=== PATIENT | female | born 1985 | race American Indian/Alaskan Native ===

== ENCOUNTER 2017-03-14 09:48 | Emergency (ER) | payer OTHER ==
[2017-03-14 10:19] VITALS: BP 103/71
[2017-03-14 10:36] LABS: Basophils % (Auto) 0.9 % (0.0-1.8); Eosinophils % (Auto) 2.5 % (0.0-4.3); Hematocrit 38.6 % (30.3-42.9); Hemoglobin 12.6 gm/dl (10.1-14.3); Mean Corpuscular HGB Conc 33 % (30-34); Mean Corpuscular Hemoglobin 28 pg (28-32); Mean Corpuscular Volume 85 fl (79-97); Platelet Count 205 K/mm3 (140-440); Red Blood Count 4.56 M/mm3 (3.65-5.03); Red Cell Distribution Width 15.5 % (13.2-15.2); White Blood Count 6.7 K/mm3 (4.5-11.0)
[2017-03-14 10:54] LABS: Anion Gap 16 mmol/L; Blood Urea Nitrogen 14 mg/dL (7-17); Calcium 8.5 mg/dL (8.4-10.2); Carbon Dioxide 25 mmol/L (22-30); Chloride 100.8 mmol/L (98-107); Glucose 94 mg/dL (65-100); Potassium 4.7 mmol/L (3.6-5.0); Sodium 137 mmol/L (137-145)
[2017-03-14 11:48] LABS: Bilirubin,Urine NEG (Negative); Blood,Urine NEG (Negative); Ketones,Urine NEG (Negative); Leukocyte Esterase,Urine TR (Negative); Nitrite,Urine NEG (Negative); Protein,Urine <15 mg/dL mg/dL (Negative); Urobilinogen,Urine < 2.0 mg/dL (<2.0)
--- NOTE | 2017-03-14 12:32 | XRay Report ---
CHEST 2 VIEWS INDICATION: Chest pain. COMPARISON: None similar. FINDINGS: PA and lateral chest radiographs demonstrate normal cardiomediastinal silhouette. Clear lungs. Intact bones. CONCLUSION: No acute disease in the chest. Thank you for the opportunity to participate in this patient's care.
[2017-03-14] MEDS ORDERED: TORADOL IM ONE (14:07)
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
[2017-03-14] MEDS ORDERED: DUONEB 0.5 MG-3 MG/3 ML SOLN IH ONE (15:11)
== END 2017-03-14 15:00 | disposition home or self-care (01) ==
LOC: ED 09:48
DX: R07.89 Other chest pain (principal); M25.531 Pain in right wrist; M25.532 Pain in left wrist; M54.5 Low back pain; G89.29 Other chronic pain
CPT/HCPCS: 36415; 71020; 80048; 81001; 81025; 84484; 85025; 93005; 93010; 94640; 94760; 96372; 99285; J1885